=== PATIENT | male | born 1970 | race Caucasian/White ===

== ENCOUNTER 2020-08-19 10:29 | Emergency (ER) | payer OTHER ==
[2020-08-19 14:27] LABS: BASOPHIL 0.4 % (0-2); EOSINOPHIL 0.2 % (0-5); HCT 49.5 % (42.0-52.0); HGB 16.6 g/dl (13.2-18.0); LYMPHOCYTE 15.3 % (15-48); MCH 30.5 pg (25.0-31.0); MCHC 33.5 g/dL (32.0-36.0); MONOCYTE 8.5 % (0-12); NEUTROPHIL 75.3 % (41-80); NRBC 0; PLT 303 K/uL (150-400); RBC 5.44 M/uL (4.70-6.00); WBC 9.5 K/uL (4.0-10.5)
[2020-08-19 14:37] LABS: BILIRUBIN NEGATIVE (NEGATIVE); BLOOD NEGATIVE Ery/uL (NEGATIVE); CLARITY CLEAR (CLEAR); COLOR YELLOW (YELLOW); GLUCOSE (U) NORMAL (NORMAL); LEUKOCYTES NEGATIVE Leu/uL (NEGATIVE); NITRITE NEGATIVE (NEGATIVE); PROTEIN TRACE (LOW) mg/dL (NEGATIVE); SPECIFIC GRAVITY 1.015 (1.001-1.030); pH 8.5 (5.0-9.0)
[2020-08-19 14:48] LABS: AMORPHOUS PHOSPHATE CRYSTALS LARGE
[2020-08-19 14:49] LABS: BACTERIA 1+; MUCOUS MODERATE; SQUAMOUS EPITHELIAL CELLS RARE; URINARY RBC RARE; URINARY WBC RARE
[2020-08-19 15:05] LABS: POTASSIUM 3.5 mmol/L (3.5-5.1)
[2020-08-19] MEDS ORDERED: MEDROL 4MG DOSEP4 MG PO (15:23)
[2020-08-19] MEDS ORDERED: ZOFRAN4 M1 PO (15:23)
[2020-08-19] MEDS ORDERED: ROBAXIN500 MG PO (15:23)
== END 2020-08-19 16:03 | disposition home or self-care (01) ==
LOC: FER 10:29
PROVIDERS: Nurse Practitioner Family
DX: M54.12 Radiculopathy, cervical region (principal); R11.2 Nausea with vomiting, unspecified; M54.5 Low back pain; Z88.8 Allergy status to other drugs, medicaments and biological substances
CPT/HCPCS: 36415; 72072; 80048; 81001; 85025; 96372; J1100; J1885; J7030